=== PATIENT | female | born 1955 | race Two or more races ===

== ENCOUNTER → 2024-06-09 | Emergency (ER) | payer OTHER ==
[~2024-06-09] VITALS: Ht 165.1 cm; Wt 76.2 kg
[~2024-06-09] MED LIST: ATACAND16 MG; CRESTOR40 MG PO; HYDRODIURIL12.5 MG PO; KETOROLAC TROMETHAMINE 30 MG VIAL IV ONE; KETOROLAC TROMETHAMINE 30 MG VIAL ONE; KETOROLAC TROMETHAMINE 60 MG VIAL IM ONE; KETOROLAC TROMETHAMINE 60 MG VIAL IM STA; METFORMIN HCL500 M3; MORPHINE SULFATE 4 MG/ML VIAL IV STA; NORVASC10 MG PO; ORPHENADRINE CITRATE 30 MG/ML AMPUL IM STA; ORPHENADRINE CITRATE 30 MG/ML AMPUL ONE; PEPCID20 MG PO; PREVACID15 M1; PRILOSEC OTC20 MG; TENORMIN50 M1; ZETIA10 MG
== END | disposition home or self-care (01) ==
LOC: ER 04:04
DX: G89.11 Acute pain due to trauma (principal); M25.552 Pain in left hip; I10 Essential (primary) hypertension; E11.9 Type 2 diabetes mellitus without complications; Z79.84 Long term (current) use of oral hypoglycemic drugs; Z88.0 Allergy status to penicillin; Z88.6 Allergy status to analgesic agent
CPT/HCPCS: 72192; 73503; 96372; 99284; J1885 ×2; J2270; J2360